=== PATIENT | female | born 1985 | race African-American/Black ===

== ENCOUNTER 2018-05-26 13:05 | Emergency (ER) | payer SELFPAY ==
[2018-05-26 15:13] LABS: ABSOLUTE BASOPHILS # (AUTO) 0.1 10^3/uL (0.0-0.2); ABSOLUTE EOSINOPHILS # (AUTO) 0.2 10^3/uL (0.0-0.6); ABSOLUTE LYMPHOCYTES (AUTO) 1.1 10^3/uL (0.5-4.7); ABSOLUTE MONOCYTES (AUTO) 0.5 10^3/uL (0.1-1.4); BASOPHILS % (AUTO) 0.9 % (0-2); EOSINOPHILS % (AUTO) 3.5 % (0-6); LYMPHOCYTES % (AUTO) 18.5 % (13-45); MEAN CORPUSCULAR HEMOGLOBIN 29.7 pg (27.0-33.4); MEAN CORPUSCULAR HGB CONC 33.3 g/dL (32.0-36.0); MEAN CORPUSCULAR VOLUME 89 fl (80-97); MONOCYTES % (AUTO) 7.8 % (3-13); PLATELET COUNT 249 10^3/uL (150-450); RED BLOOD COUNT 4.37 10^6/uL (3.72-5.28); SEGMENTED NEUTROPHILS % (AUTO) 69.3 % (42-78); TOTAL CELLS COUNTED % (AUTO) 100 %; WHITE BLOOD COUNT 5.8 10^3/uL (4.0-10.5)
[2018-05-26 15:34] LABS: ALANINE AMINOTRANSFERASE 49 U/L (9-52); ALBUMIN 3.9 g/dL (3.5-5.0); ALKALINE PHOSPHATASE 57 U/L (38-126); ANION GAP 13 (5-19); ASPARTATE AMINO TRANSFERASE 36 U/L (14-36); BILIRUBIN,DIRECT 0.3 mg/dL (0.0-0.4); BILIRUBIN,TOTAL 0.4 mg/dL (0.2-1.3); BLOOD UREA NITROGEN 8 mg/dL (7-20); CALCIUM 9.2 mg/dL (8.4-10.2); CARBON DIOXIDE 25 mmol/L (22-30); CHLORIDE 104 mmol/L (98-107); GLUCOSE 84 mg/dL (75-110); POTASSIUM 4.1 mmol/L (3.6-5.0); SODIUM 141.6 mmol/L (137-145); TOTAL PROTEIN 7.1 g/dL (6.3-8.2)
--- NOTE | 2018-05-26 15:41 | ER Document Report ---
ED General - General Chief Complaint: Leg Pain Stated Complaint: WEAKNESS Time Seen by Provider: 05/26/18 14:08 Information source: Patient TRAVEL OUTSIDE OF THE [place] IN LAST 30 DAYS: No - HPI Patient complains to provider of: Leg weakness bilaterally Onset: Other - 32-year-old female with a history of multiple sclerosis who presents for evaluation of poorly controlled diabetes in addition to high blood pressure the presents for evaluation of increasing numbness weakness in the lower extremities bilaterally which have developed over the last 2 weeks, she initially was ambulatory with some assistance, but now is unable to ambulate even with assistance. She also has complained of increasing pain in her lower extremities should cramping like pain. She complains that this is similar to previous MS flares she has had in the past though she was last treated as recently as 2 years prior for her multiple sclerosis and loss treatment as a result of change in insurance has not been any therapy to try and help with this. - Related Data Allergies/Adverse Reactions: amoxicillin [From Augmentin] Allergy (Verified 05/26/18 13:22) azithromycin Allergy (Verified 05/26/18 13:22) clavulanic acid [From Augmentin] Allergy (Verified 05/26/18 13:22) Past Medical History - General Information source: Patient, Parent - Social History Smoking Status: Never Smoker Chew tobacco use (# tins/day): No Frequency of alcohol use: Occasional Drug Abuse: Marijuana Family History: None Patient has suicidal ideation: No Patient has homicidal ideation: No - Past Medical History Cardiac Medical History: Reports: Hx Hypertension Endocrine Medical History: Reports: Hx Diabetes Mellitus Type 2 Renal/ Medical History: Denies: Hx Peritoneal Dialysis Review of Systems - Review of Systems -: Yes All other systems reviewed and negative Physical Exam - Vital signs Vitals: Temp Pulse Resp BP Pulse Ox 99.1 F 92 18 134/78 H 97 05/26/18 13:15 05/26/18 13:15 05/26/18 13:15 05/26/18 13:15 05/26/18 13:15 - General General appearance: Other - Alert appropriate and interactive In distress: None - HEENT Head: Normocephalic Eyes: Normal Conjunctiva: Normal Cornea: Normal Extraocular movements intact: Yes Eyelashes: Normal Pupils: PERRL Fundascopic: Other Nerve palsy: No Visual diehl normal: No Ears: Normal External canal: Normal Sinus: Normal Nasal: Normal Mouth/Lips: Normal Mucous membranes: Normal Pharynx: Normal Neck: Normal - Respiratory Respiratory status: No respiratory distress Chest status: Nontender Breath sounds: Normal Chest palpation: Normal - Cardiovascular Rhythm: Regular Heart sounds: Normal auscultation Murmur: No - Abdominal Inspection: Morbidly Obese Distension: Other Tenderness: Nontender - Back Back: Normal - Extremities General upper extremity: Normal inspection, Nontender, Normal color, Normal ROM , Normal strength, Normal temperature General lower extremity: Other - The pelvis is stable, the lower extremities are symmetric, there is normal range of motion to passive range of motion at the hip, knee, ankle There is weakness in the right quadriceps with 4 out of 5 strength, decreased patellar tendon reflex on the right Left-sided weakness, 4+ strength out of 5 on the left, decreased patellar reflex on the left, Decreased sensation to pinprick bilaterally extending from the mid thigh inferiorly Course - Re-evaluation Re-evalutation: 05/26/18 16:48 32-year-old female presents for evaluation of increasing weakness in the bilateral lower extremities with some associated paresthesias. She does have history of MS in the past, has had lesions which involved both the upper extremities as well as pain in the back, currently she notes that she has a sensory level at approximately T10. The patient's morbid obesity does limit her examination, her BMI is nearly 70 thus assessing her abdomen essentially impossible. She is unable to ambulate at this time. On examination she does have decreased sensation below the level of T10. Otherwise is relatively benign and examination. Have some concern for potential compressive lesion the spine or new MS lesion, such we will proceed with MR imaging of the thoracic and lumbar spine. Pending results of MR imaging of the lumbar spine will assess the patient's multiple sclerosis utilizing high-dose steroids or if compressive lesion appropriate referral. If patient is unable to ambulate despite negative imaging will plan for aggressive analgesia and attempt a trial of ambulation. Patient to be Transitioned to the care of Dr. Scott Pending imaging and final disposition detemrination. - Vital Signs Vital signs: Temp Pulse Resp BP Pulse Ox 99.1 F 92 18 134/78 H 97 05/26/18 13:15 05/26/18 13:15 05/26/18 13:15 05/26/18 13:15 05/26/18 13:15 - Laboratory Result Diagrams: 05/26/18 14:55 05/26/18 14:55 Discharge - Discharge Clinical Impression: Bilateral leg numbness Leg pain Qualifiers: Laterality: unspecified laterality Qualified Code(s): M79.606 - Pain in leg, unspecified
[2018-05-26] MEDS ORDERED: FENTANYL CITRATE INJ/PF 100 MCG/2 ML AMPUL IV ONE (16:41)
--- NOTE | 2018-05-26 18:17 | RADIOLOGY REPORT (SQ) ---
EXAM DESCRIPTION: MRI LUMBAR SPINE COMBO; MRI THORACIC SPINE COMBO COMPLETED DATE/TIME: 05/26/2018 5:52 pm REASON FOR STUDY: bilateral wqeakness and numbness; concern for MS lesions in T spine COMPARISON: None. TECHNIQUE: Sagittal and Axial imaging includes T1, T2, STIR and gradient echo sequences. Post contr ast T1. 20 cc Dotarem. GFR not checked due to patient age. LIMITATIONS: Body habitus. FINDINGS: THORACIC LOCALIZER: No worrisome findings. ALIGNMENT: Normal. VERTEBRAE: Intact. BONE MARROW: Normal. No marrow replacement or reactive changes. HARDWARE: None in the spine. CORD: Patchy abnormal cord signal in the conus. No clear abnormal enhancement here. SOFT TISSUES: No soft tissue masses. THORACIC DISCS T1-T12: Small protrusion is suggested at T8-9. No compression on the cord. No stenos is. LOWER CERVICAL: Not evaluated to a significant degree to allow comment. LUMBAR LOCALIZER: No worrisome findings. ALIGNMENT: Normal. VERTEBRAE: Intact. BONE MARROW: Normal. No marrow replacement or reactive changes. HARDWARE: None in the spine. CORD: Patchy abnormal signal with slight widening of the conus. No gross enhancement here. SOFT TISSUES: No soft tissue masses. DISCS: Diminished disc signal at L4-5. Small protrusions at L3-4, L4-5 and L5-S1 without high-grade stenosis or vaishali nerve root impingement. POSTERIOR ELEMENTS: SACRUM: Incompletely imaged. No significant spinal stenosis or exit foraminal stenosis. OTHER: No other significant finding. IMPRESSION: 1. Abnormal cord signal in the conus. This may reflect demyelinating disease as clinica lly suspected. No abnormal enhancement. The remainder of the thoracic cord looks normal. 2. Mild t horacic and lumbar spondylosis otherwise, as above. No high-grade stenosis or vaishali cord compression . TECHNICAL DOCUMENTATION: JOB ID: [id number] [employer]- All Rights Reserved Reading location - IP/workstation name: [email or web address]
[2018-05-26] MEDS ORDERED: METHYLPREDNISOLONE INJ 125 MG/2 ML SDV IV ONE (18:29)
--- NOTE | 2018-05-26 19:18 | ER Document Report ---
Doctor's Note Notes: 05/26/18 19:16 I assume care of this patient from Dr. Lynn. Patient is a 32-year-old female with multiple sclerosis that presented to the emergency room for decreased sensation and strength in her lower extremities. On my evaluation patient's pain is improved after fentanyl. She is able to move her left leg against gravity but has minimal movement of her right leg. MRI of the thoracic and lumbar spine shows changes consistent with her multiple sclerosis. There is no acute spinal cord compression. There is no cauda equina syndrome. Patient was given 1 g IV Solu-Medrol for MS exacerbation. She is unable to stand or ambulate because of her weakness. Patient will be admitted for PT/OT, pain control and monitoring of her MS exacerbation. Case discussed with Dr. Robles at 1830, he requests case be discussed with the night physician who will be managing this patient Dr. Singletary. Case was discussed with Dr. Singletary who recommends transfer to a facility with neurology. Patient will be transferred to [facility] for further neurologic evaluation. Case discussed with accepting physician Dr. Meza. 05/26/18 19:18 Lumbar Spine MRI 05/26/18 14:22 IMPRESSION: 1. Abnormal cord signal in the conus. This may reflect demyelinating disease as clinically suspected. No abnormal enhancement. The remainder of the thoracic cord looks normal. 2. Mild thoracic and lumbar spondylosis otherwise, as above. No high-grade stenosis or vaishali cord compression. Thoracic Spine MRI 05/26/18 14:23
[2018-05-27] MEDS ORDERED: FENTANYL CITRATE INJ/PF 100 MCG/2 ML AMPUL IV ONE (01:37)
[2018-05-27 02:02] VITALS: BP 146/85
== END 2018-05-27 02:06 | disposition short-term general hospital (02) ==
LOC: ER 13:05
DX: R20.0 Anesthesia of skin (principal); M79.606 Pain in leg, unspecified; G35 Multiple sclerosis; M62.81 Muscle weakness (generalized); E11.9 Type 2 diabetes mellitus without complications
CPT/HCPCS: 96376; 99285; 96374; 96375; 36415; 85025; 80053; 72157; 72158; A9576; J3010 ×2; J2930

== ENCOUNTER 2018-08-28 10:48 | Emergency (ER) | payer SELFPAY ==
[2018-08-28] MEDS ORDERED: FENTANYL CITRATE INJ/PF 100 MCG/2 ML AMPUL IM ONE (11:05)
--- NOTE | 2018-08-28 11:55 | RADIOLOGY REPORT (SQ) ---
EXAM DESCRIPTION: KNEE LEFT 2 VIEWS COMPLETED DATE/TIME: 08/28/2018 11:43 am REASON FOR STUDY: fall;pain fell this morning, injury pain COMPARISON: None. NUMBER OF VIEWS: Two views. TECHNIQUE: AP and lateral radiographic images acquired of the left knee. LIMITATIONS: None. FINDINGS: MINERALIZATION: Normal. BONES: Tiny avulsion fragments are present over the infrapatellar fat pad on the lateral view, likely avulsion fragments related to the ACL disruption. Distal femur, proximal tibia and fibula, patella otherwise grossly intact JOINT: There is dorsal and slight lateral dislocation of the tibia with respect to the distal femur. Large suprapatellar knee joint effusion SOFT TISSUES: Diffuse prepatellar soft tissue swelling OTHER: No other significant finding. IMPRESSION: Dorsal left knee dislocation, tibial articular surfaces are dorsal to the distal femoral articular surfaces. Small avulsion fragments projected over the infrapatellar fat pad on lateral view likely avulsion fra gments from cruciate ligament injury Report called to Dr. Gardner in the emergency room TECHNICAL DOCUMENTATION: JOB ID: [id number] [employer]- All Rights Reserved Reading location - IP/workstation name: [email or web address]
--- NOTE | 2018-08-28 12:02 | ER Document Report ---
ED Extremity Problem, Lower - General Chief Complaint: Knee Injury Stated Complaint: LEFT KNEE PAIN Time Seen by Provider: 08/28/18 11:04 TRAVEL OUTSIDE OF THE [place] IN LAST 30 DAYS: No - HPI Patient complains to provider of: Other - 32-year-old female who is morbidly obese with a history of multiple sclerosis that presents 24 hours after a fall while going upstairs yesterday at which time she felt her left knee twist and she has been unable to get up since. She has not tried anything to help make it better, movement makes it much worse. She notes that the leg is very weak and feels very unsteady. There is intense pain in the knee. - Related Data Allergies/Adverse Reactions: amoxicillin [From Augmentin] Allergy (Verified 08/28/18 11:20) azithromycin Allergy (Verified 08/28/18 11:20) clavulanic acid [From Augmentin] Allergy (Verified 08/28/18 11:20) Past Medical History - General Information source: Patient - Social History Smoking Status: Never Smoker Chew tobacco use (# tins/day): No Frequency of alcohol use: None Drug Abuse: None Family History: None Patient has suicidal ideation: No Patient has homicidal ideation: No - Past Medical History Cardiac Medical History: Reports: Hx Hypertension Endocrine Medical History: Reports: Hx Diabetes Mellitus Type 2 Renal/ Medical History: Denies: Hx Peritoneal Dialysis Review of Systems - Review of Systems -: Yes All other systems reviewed and negative Physical Exam - Vital signs Vitals: Temp Pulse BP Pulse Ox 97.9 F 94 112/90 H 98 08/28/18 10:56 08/28/18 10:56 08/28/18 10:56 08/28/18 10:56 - General General appearance: Anxious In distress: Mild - HEENT Head: Normocephalic Eyes: Normal Pupils: PERRL - Respiratory Respiratory status: No respiratory distress Chest status: Nontender Breath sounds: Normal Chest palpation: Normal - Cardiovascular Rhythm: Regular Heart sounds: Normal auscultation Murmur: No - Abdominal Inspection: Normal Distension: No distension Bowel sounds: Normal Tenderness: Nontender Organomegaly: No organomegaly - Back Back: Normal, Nontender - Extremities General upper extremity: Normal ROM Hip: Normal Thigh: Normal Knee: Other - The right lower extremity demonstrates a small ecchymoses just inferior to the right knee. The left knee is asymmetric with the right knee, it appears somewhat con vacs in appearance There is appreciable ecchymoses and swelling inferior to the level of the patella. The knee itself is markedly unstable, there is a varus and valgus laxity, there is anterior and posterior laxity There is profound tenderness to the patella the patient's habitus limits assessment of possible effusion Foot: Other - The feet are symmetric There is a palpable DP pulse bilaterally that is a strong There is brisk capillary refill in all 5 digits bilaterally There is intact range of motion in all digits of the feet bilaterally - Neurological Neuro grossly intact: Yes Cognition: Normal Orientation: AAOx4 [place] Coma Scale Eye Opening: Spontaneous [place] Coma Scale Verbal: Oriented Junior Coma Scale Motor: Obeys Commands Junior Coma Scale Total: 15 Speech: Normal Motor strength normal: LUE, RUE, LLE, RLE Sensory: Normal Course - Re-evaluation Re-evalutation: Initial assessment of patient, she is got large ecchymoses over the left lower extremity just inferior to the level of the knee. Because of concern for possible injury to the knee will obtain x-rays of the left knee, will administer fentanyl for analgesia and reassess. X-rays noteworthy for the patient to have a dislocation of the left knee. On reassessment the patient continues to have a palpable pulse in the left lower extremity. She is got intact sensation left lower extremity. We will plan for immobilization. After administration of 2 mg of Dilaudid patient had enough analgesia to attempt slight manual reduction and splint application, manufactured a lower extremity knee immobilizer as there is none that are large enough to fit this patient. Following reassessment of patient with manipulation of the lower extremity and application of knee immobilizer it is notable that the patient's knee remains malpositioned. At this time she does have a strong palpable DP pulse in the left foot as well as brisk capillary refill. Sensation and full range of motion are also preserved in the ankle and foot. Her habitus makes it exceptionally difficult to assess appropriate manipulation and as I am concerned further manipulation may induce an injury which does not potentially already exist I will defer further manipulation at this time. 1140-contacted on-call orthopedist Dr. Castle who states that patient to be transferred to Center with vascular capabilities is a high incidence of vascular injury and such injury. 12/05/18 11:50 11:50 AMcontacted [facility] On reinspection patient continues to have pulse as well as sensation in the left lower extremity. We will plan for placement of knee immobilizer and transfer 08/28/18 16:17 Identified on CTA that potentially there is a dissection in the popliteal artery. Immediately called [facility] vascular surgeon- will initiate transfer for patient While awaiting callback from [facility] also called [facility] for evaluation and transfer of this patient. 08/28/18 18:03 Contacted [facility] trauma transfer line as this patient does have a appreciable vascular injury involving the intima of the popliteal artery, patient also has a dislocated knee. She continues to have a palpable pulse in her left lower extremity with intact sensation in the toes. Because of this she is been placed in a leg immobilizer, her knee is malaligned however there is distal flow and a palpable pulse. As such we will defer further manipulation at this time as she has been immobilized. Current plan refer patient to undergo transfer underneath the care of Dr. García to [facility]. Patient was continually monitored in the emergency department and reassessed multiple times, is notable that she maintained sensation and pulse in the left lower extremity despite the malposition of her femur and tibia. She was redosed with analgesia multiple times. I made multiple phone calls to multiple medical centers in attempts to obtain the appropriate level of care for this patient, ultimately she was dispositioned to a true tertiary care center that has both orthopedics as well as vascular surgery available in addition to trauma surgery. She was transported as quickly as reasonably possible. All attempts were made to obtain images in the most timely fashion as well as all phone calls to be made emergently with a request that consulting physicians immediately call back for management help and recommendations. - Vital Signs Vital signs: Temp Pulse Resp BP Pulse Ox 98.3 F 94 25 H 145/88 H 98 08/28/18 17:51 08/28/18 10:56 08/28/18 17:51 08/28/18 17:51 08/28/18 17:51 - Laboratory Result Diagrams: 08/28/18 12:01 08/28/18 12:01 Laboratory results interpreted by me: 08/28/18 08/28/18 12:01 12:01 RDW 16.0 H Seg Neutrophils % 87.3 H Lymphocytes % 6.8 L Absolute Neutrophils 8.3 H BUN 6 L Creatinine 0.43 L Glucose 135 H AST 53 H Procedures - Immobilization Left Knee Pre-Proc Neuro Vasc Exam: Normal Immobilizer type: Other - Improvised knee immobilizer utilizing Ortho-Glass L long-leg fashion as well as a stirrup Performed by: Provider, RN, PCT Post-Proc Neuro Vasc Exam: Normal, Unchanged from pre-exam Alignment checked and good: No - While the splint was in place the joint remained poorly reduced Critical Care Note - Critical Care Note Total time excluding time spent on procedures (mins): 45 Discharge - Discharge Clinical Impression: Artery dissection Knee dislocation Qualifiers: Encounter type: initial encounter Laterality: left Qualified Code(s): S83.105A - Unspecified dislocation of left knee, initial encounter Fall Qualifiers: Encounter type: initial encounter Qualified Code(s): W19.XXXA - Unspecified fall, initial encounter Condition: Stable Disposition: [facility]
[2018-08-28 12:21] LABS: ABSOLUTE LYMPHOCYTES (AUTO) 0.6 10^3/uL (0.5-4.7); ABSOLUTE MONOCYTES (AUTO) 0.5 10^3/uL (0.1-1.4); ABSOLUTE NEUT (AUTO) 8.3 10^3/uL (1.7-8.2); BASOPHILS % (AUTO) 0.5 % (0-2); EOSINOPHILS % (AUTO) 0.2 % (0-6); HEMATOCRIT 39.7 % (36.0-47.0); HEMOGLOBIN 13.4 g/dL (12.0-15.5); LYMPHOCYTES % (AUTO) 6.8 % (13-45); MEAN CORPUSCULAR HEMOGLOBIN 29.3 pg (27.0-33.4); MEAN CORPUSCULAR HGB CONC 33.8 g/dL (32.0-36.0); MEAN CORPUSCULAR VOLUME 87 fl (80-97); MONOCYTES % (AUTO) 5.2 % (3-13); PLATELET COUNT 261 10^3/uL (150-450); RED BLOOD COUNT 4.59 10^6/uL (3.72-5.28); SEGMENTED NEUTROPHILS % (AUTO) 87.3 % (42-78); TOTAL CELLS COUNTED % (AUTO) 100 %; WHITE BLOOD COUNT 9.5 10^3/uL (4.0-10.5)
[2018-08-28] MEDS ORDERED: HYDROMORPHONE HCL INJ/PF 2 MG/ML AMPULE IV ONE (12:29)
[2018-08-28 12:45] LABS: ALANINE AMINOTRANSFERASE 20 U/L (9-52); ALBUMIN 4.2 g/dL (3.5-5.0); ALKALINE PHOSPHATASE 114 U/L (38-126); ANION GAP 14 (5-19); ASPARTATE AMINO TRANSFERASE 53 U/L (14-36); BILIRUBIN,DIRECT 0.3 mg/dL (0.0-0.4); BILIRUBIN,TOTAL 0.8 mg/dL (0.2-1.3); BLOOD UREA NITROGEN 6 mg/dL (7-20); CALCIUM 9.3 mg/dL (8.4-10.2); CARBON DIOXIDE 23 mmol/L (22-30); CHLORIDE 102 mmol/L (98-107); GLUCOSE 135 mg/dL (75-110); POTASSIUM 3.9 mmol/L (3.6-5.0); SODIUM 139.2 mmol/L (137-145)
[2018-08-28] MEDS ORDERED: FENTANYL CITRATE INJ/PF 100 MCG/2 ML AMPUL IV ONE (15:33)
--- NOTE | 2018-08-28 15:44 | RADIOLOGY REPORT (SQ) ---
EXAM DESCRIPTION: CTA LEFT LOWER EXTREMITY COMPLETED DATE/TIME: 08/28/2018 3:20 pm REASON FOR STUDY: concern for vascular injury COMPARISON: None. TECHNIQUE: CT angiogram performed of the left calf. 2 injections performed. CONTRAST TYPE AND DOSE: Not recorded RENAL FUNCTION: None required. The patient is less than 50 years old. LIMITATIONS: None. FINDINGS: Angiographic images obtained through the left lower extremity for evaluation of possible v ascular injury at the level of the knee. There is anterior dislocation of the femur with respect to the tibia. There is opacification of the distal superficial femoral artery, popliteal artery, and trifurcation v essels with distal opacification. There is haziness of the popliteal artery at the level of the knee . This is worrisome for dissection. IMPRESSION: Knee dislocation. Findings in the popliteal artery worrisome for dissection. TECHNICAL DOCUMENTATION: JOB ID: [id number] [employer]- All Rights Reserved Reading location - IP/workstation name: [email or web address]
[2018-08-28 18:09] VITALS: BP 145/88
== END 2018-08-28 18:10 | disposition short-term general hospital (02) ==
LOC: ER 10:48
DX: I77.77 Dissection of artery of lower extremity (principal); S83.105A Unspecified dislocation of left knee, initial encounter; W10.9XXA Fall (on) (from) unspecified stairs and steps, initial encounter; Y92.009 Unspecified place in unspecified non-institutional (private) residence as the place of occurrence of the external cause; E66.01 Morbid (severe) obesity due to excess calories; E11.9 Type 2 diabetes mellitus without complications; I10 Essential (primary) hypertension; Z88.0 Allergy status to penicillin; Z88.1 Allergy status to other antibiotic agents
CPT/HCPCS: 29505; 99285; 96372; 96374; 96375; 86900; 86901; 36415; 86850; 85025; 80053; 73560; 73706; J3010; J1170

== ENCOUNTER → 2018-12-30 | Outpatient (CLI) | payer BC, MEDICAID ==
--- NOTE | 2018-12-30 14:29 | RADIOLOGY REPORT (SQ) ---
EXAM DESCRIPTION: CT LT LOWER EXTREMITY WITHOUT COMPLETED DATE/TIME: 12/30/2018 1:12 pm REASON FOR STUDY: *W/2D AND 3D RECON* KNEE PAIN S83.125D POSTERIOR DISLOC OF PROXIMAL END OF TIBIA, LEFT KNE COMPARISON: CT LEFT KNEE 08/28/2018 MRI LEFT KNEE 08/28/2018 TECHNIQUE: CT scan of the left knee performed without intravenous or oral contrast. Images reviewed with soft tissue and bone windows. Reconstructed coronal and sagittal MPR images reviewed. All pawel ges stored on PACS. All CT scanners at this facility use dose modulation, iterative reconstruction, and/or weight based d osing when appropriate to reduce radiation dose to as low as reasonably achievable (ALARA). [facility]: Dose Right [facility]: CareDose [facility]: Dose Right [facility]: Teradose 4D [facility]: [employer] RADIATION DOSE: CT Rad equipment meets quality standard of care and radiation dose reduction techniq ues were employed. CTDIvol: 17.6 mGy. DLP: 393 mGy-cm. mGy. LIMITATIONS: None. FINDINGS: There is chronic appearing dorsal dislocation of the tibia with respect to the distal femu r. Femoral condyles exhibit a pseudoarthrosis with the anterior edge of the medial and lateral tibia l plateaus with bony remodeling, best shown on axial images 33 through 37. Overall alignment is diamond lar compared to the CTA left knee 08/28/2018. Since the prior CTA left knee 08/28/2018, patient has undergone ACL repair which is now torn. Hardwar e projects lateral to the distal lateral femoral condyle on axial images 21 through 30. There are synovial ossifications as well as multiple small intra-articular loose bodies. Moderate si ze knee joint effusion. Proximal tibiofibular joint is intact. Lateral tracking of the patella at the patellofemoral joint. Muscle atrophy is seen along the distal quadriceps muscle IMPRESSION: Re-injury of the ACL/PCL reconstruction which is now performed. There is chronic appearing dorsal dislocation of the tibia with respect to the distal femur, and bony remodeling along the anterior edges of the medial and lateral tibial plateaus. TECHNICAL DOCUMENTATION: JOB ID: [id number] Quality ID # [id number]: Final reports with documentation of one or more dose reduction techniques (e.g., Au tomated exposure control, adjustment of the mA and/or kV according to patient size, use of iterative reconstruction technique) 2010 [employer]- All Rights Reserved Reading location - IP/workstation name: [email or web address]
== END ==
LOC: RAD 12:47
PROVIDERS: ATTEND Orthopaedic Surgery
DX: S83.12 Posterior subluxation and dislocation of proximal end of tibia (principal); M25.562 Pain in left knee